=== PATIENT | male | born 1965 | race Caucasian/White ===

== ENCOUNTER 2025-03-13 12:20 | Outpatient (CLI) | payer BC, SELFPAY ==
--- OUTSIDE RECORDS SUMMARY | 2025-03-13 12:24 | XMS_ITS | Referral Summary ---
Author Organization [facility] Address [address] [place] [id number] Care Team Providers Care [employer] Project Manager Name Role Phone Unavailable Primary Care Provider Unavailabl e Social History Tobacco Use Types Packs/Day Years Used Date Smoking Tobacco: Never Assessed Sex and Gender Information Value Date Recorded Sex Assigned at Male 03/24/2022 7:23 PM CDT Legal Sex Male 7:23 PM CDT Gender Identity Male 03/24/2022 7:23 PM CDT Sexual Orientation Not on file Plan of Treatment Not on file
--- OUTSIDE RECORDS SUMMARY | 2025-03-13 12:24 | XMS_ITS | Clinical Summary ---
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
[2025-03-13 14:40] LABS: Ferritin 70.5 ng/ml (17.9-464)
[2025-03-13 14:54] LABS: Vitamin B12 576 pg/mL (239-931)
[2025-03-13 15:06] LABS: Iron 121 ug/dL (49-181)
[2025-03-13 15:15] LABS: Total Iron Binding Capacity 350 ug/dL (261-462)
== END 2025-03-13 23:59 | disposition home or self-care (01) ==
LOC: LAB 12:22
PROVIDERS: PCP Family Medicine; Visit Provider Internal Medicine Gastroenterology
DX: K63.89 Other specified diseases of intestine (principal)
CPT/HCPCS: 36415; 82607; 82652; 82728; 82746; 83540; 83550; 84590